=== PATIENT | female | born 1985 | race Caucasian/White ===

== ENCOUNTER → 2016-12-04 | Outpatient (CLI) | payer OTHER | LOC: FIMAGING 13:01 | PROVIDERS: ATTEND Internal Medicine Hematology & Oncology | DX: R92.2 Inconclusive mammogram (principal); Z15.01 Genetic susceptibility to malignant neoplasm of breast | CPT/HCPCS: G0204; G0279 ==

== ENCOUNTER → 2016-12-10 | Outpatient (CLI) | payer OTHER ==
[~2016-12-10] MED LIST: BUPIVACAINE 0.5% 30 ML SDV ONE; GADOBUTROL 10 ML VIAL IVP ONE; LIDOCAINE 1% 5 ML SDV ONE; MIDAZOLAM 2 MG/2 ML VIAL ONE; NA BICARBONATE 50 MEQ/50 ML VIAL ONE; NS 1,000 ML IV SCH; ONDANSETRON 4 MG/2 ML VIAL ONE; fentaNYL 100 MCG/2 ML INJ ONE
== END ==
LOC: FIMAGING 08:16
PROVIDERS: ATTEND Radiology Diagnostic Radiology
PROC: 0HBU3ZX Excision of Left Breast, Percutaneous Approach, Diagnostic (ICD-10-PCS; principal; 2016-12-10)
DX: R92.0 Mammographic microcalcification found on diagnostic imaging of breast (principal); Z15.01 Genetic susceptibility to malignant neoplasm of breast
CPT/HCPCS: A9585; J2250; J2405; J3010

== ENCOUNTER → 2017-07-26 | Outpatient (CLI) | payer OTHER ==
[~2017-07-26] MED LIST changes: -BUPIVACAINE 0.5% 30 ML SDV ONE; -LIDOCAINE 1% 5 ML SDV ONE; -MIDAZOLAM 2 MG/2 ML VIAL ONE; -NA BICARBONATE 50 MEQ/50 ML VIAL ONE; -NS 1,000 ML IV SCH; -ONDANSETRON 4 MG/2 ML VIAL ONE; -fentaNYL 100 MCG/2 ML INJ ONE
== END ==
LOC: EDSTATUS 07-12 10:00 → FIMAGING 07-12 10:00
PROVIDERS: ATTEND Internal Medicine Hematology & Oncology
DX: N60.12 Diffuse cystic mastopathy of left breast (principal); Z15.01 Genetic susceptibility to malignant neoplasm of breast
CPT/HCPCS: 0159T; A9585; C8908

== ENCOUNTER → 2018-02-01 | Outpatient (CLI) | payer OTHER | LOC: FIMAGING 14:43 | PROVIDERS: ATTEND Internal Medicine Hematology & Oncology | DX: Z12.31 Encounter for screening mammogram for malignant neoplasm of breast (principal); Z80.3 Family history of malignant neoplasm of breast; Z15.01 Genetic susceptibility to malignant neoplasm of breast ==

== ENCOUNTER → 2018-08-03 | Outpatient (CLI) | payer OTHER | LOC: FIMAGING 07:37 | PROVIDERS: ATTEND Internal Medicine Hematology & Oncology | DX: Z12.39 Encounter for other screening for malignant neoplasm of breast (principal); Z15.01 Genetic susceptibility to malignant neoplasm of breast; Z80.3 Family history of malignant neoplasm of breast | CPT/HCPCS: 0159T; 77059; A9585; C8908 ==